=== PATIENT | female | born 1975 | race African-American/Black ===

== ENCOUNTER 2017-10-01 15:09 | Emergency (ER) | payer MEDICAID ==
[~2017-10-01] VITALS: Ht 167.6 cm; Wt 77.3 kg
[~2017-10-01 15:09] MED LIST: ATEN-42 PO; TAP5 PO
[2017-10-01 21:56] LABS: CLARITY URINE CLEAR (CLEAR); COLOR URINE YELLOW (YELLOW); KETONES URINE NEGATIVE (NEGATIVE); LEUKOCYTE ESTERASE URINE NEGATIVE (NEGATIVE); NITRITE URINE NEGATIVE (NEGATIVE); OCCULT BLOOD URINE 2+ (NEGATIVE); PROTEIN URINE NEGATIVE (NEGATIVE); SPECIFIC GRAVITY URINE 1.013 (1.005-1.030); UROBILINOGEN URINE 0.2 E.U./dL (0.2-1.0)
[2017-10-01 22:02] LABS: BASOPHILS % 0.6 % (0.0-2.0); EOSINOPHILS % 2.6 % (0.0-5.0); HEMATOCRIT. 41.4 % (36.0-48.0); HEMOGLOBIN. 14.1 g/dL (12.0-16.0); LYMPHOCYTES % 35.9 % (20.0-50.0); MEAN CORPUSCULAR HEMOGLOBIN 32.3 pg (28.0-32.0); MEAN CORPUSCULAR VOLUME 95.1 fL (81.0-99.0); MEAN PLATELET VOLUME 7.8 fl (7.4-10.4); MONOCYTES % 5.9 % (2.0-8.0); PLATELET 290 x1000/uL (130-400); RED BLOOD CELL COUNT 4.35 mill/uL (4.2-5.4); RED CELL DISTRIBUTION WIDTH 13.4 % (11.6-14.6)
[2017-10-01 22:07] LABS: CHLORIDE 105 mEq/L (98-107)
[2017-10-01 22:15] LABS: CARBON DIOXIDE 25 mEq/L (21-32)
[2017-10-01 23:15] VITALS: BP 128/90
== END 2017-10-01 23:30 | disposition home or self-care (01) ==
LOC: ER 17:50
DX: N92.0 Excessive and frequent menstruation with regular cycle (principal); D64.9 Anemia, unspecified; F14.10 Cocaine abuse, uncomplicated; E05.90 Thyrotoxicosis, unspecified without thyrotoxic crisis or storm; Z88.0 Allergy status to penicillin; Z98.51 Tubal ligation status
CPT/HCPCS: 36415; 80053; 81001; 81025; 85025; 99284

== ENCOUNTER 2020-04-11 22:39 | Inpatient (IN) | payer BC, MEDICAID ==
[~2020-04-11] VITALS: Ht 167.6 cm; Wt 83.0 kg
[2020-04-12] MEDS ORDERED: SODIUM CHLORIDE 0.9% 1,000 ML IV ONE (00:27)
[2020-04-12 00:52] LABS: BASOPHILS % 0.6 % (0.0-2.0); EOSINOPHILS % 2.7 % (0.0-5.0); HEMATOCRIT. 22.1 % (36.0-48.0); LYMPHOCYTES % 29.5 % (20.0-50.0); MEAN CORPUSCULAR HEMOGLOBIN 18.8 pg (28.0-32.0); MEAN CORPUSCULAR VOLUME 62.4 fL (81.0-99.0); MEAN PLATELET VOLUME 7.6 fl (7.4-10.4); MONOCYTES % 5.8 % (2.0-8.0); NEUTROPHILS % 61.4 % (40.0-76.0); PLATELET 451 x1000/uL (130-400); RED BLOOD CELL COUNT 3.55 mill/uL (4.2-5.4); RED CELL DISTRIBUTION WIDTH 20.2 % (11.6-14.6)
[2020-04-12 00:53] LABS: CHLORIDE 107 mEq/L (98-107)
[2020-04-12 00:59] LABS: HEMOGLOBIN. 6.7 g/dL (12.0-16.0)
[2020-04-12 01:00] LABS: PLATELET ESTIMATE NORMAL
[2020-04-12] MEDS ORDERED: ACETAMINOPHEN 325MG TABLET PO PRN (05:30)
[2020-04-12] MEDS ORDERED: ONDANSETRON HCL 4MG/2ML INJ IV PRN (05:30)
[2020-04-12] MEDS ORDERED: DOCUSATE SODIUM 100MG CAPSULE PO PRN (05:30)
[2020-04-12] MEDS ORDERED: CLONIDINE 0.1MG TABLET PO PRN (05:30)
[2020-04-12] MEDS ORDERED: FERROUS SULFATE 325MG TABLET PO SCH (09:00)
[2020-04-12] MEDS: SODIUM CHLORIDE 0.45% 1,000 ML IV SCH ×2 (09:00→17:28)
[2020-04-12 15:30] VITALS: BP 112/58
[2020-04-12 16:11] VITALS: BP 112/58
[2020-04-12 20:40] LABS: HEMATOCRIT. 28.3 % (36.0-48.0); HEMOGLOBIN. 8.9 g/dL (12.0-16.0); MEAN CORPUSCULAR HEMOGLOBIN 21.5 pg (28.0-32.0); MEAN CORPUSCULAR VOLUME 68.1 fL (81.0-99.0); MEAN PLATELET VOLUME 7.6 fl (7.4-10.4); PLATELET 406 x1000/uL (130-400); RED BLOOD CELL COUNT 4.16 mill/uL (4.2-5.4); RED CELL DISTRIBUTION WIDTH 27.1 % (11.6-14.6)
[2020-04-12 20:49] VITALS: BP 94/58
[2020-04-12 21:46] VITALS: BP 94/58
[2020-04-12 21:53] LABS: PLATELET ESTIMATE INCREASED
== END 2020-04-12 21:45 | disposition home or self-care (01) | DRG 760 ==
LOC: ER 22:39 → 6WST 04-12 01:06 → ENRESERV 04-12 14:06
PROVIDERS: ADMIT Hospitalist; ATTEND Hospitalist
PROC: 30233N1 Transfusion of Nonautologous Red Blood Cells into Peripheral Vein, Percutaneous Approach (ICD-10-PCS; principal; 2020-04-12)
DX: N92.0 Excessive and frequent menstruation with regular cycle (principal); D62 Acute posthemorrhagic anemia; E05.90 Thyrotoxicosis, unspecified without thyrotoxic crisis or storm; I10 Essential (primary) hypertension; D50.9 Iron deficiency anemia, unspecified; Z88.0 Allergy status to penicillin; Z79.899 Other long term (current) drug therapy; Z98.51 Tubal ligation status
CPT/HCPCS: 36415; 76830; 76856; 80053; 85025; 86850; 86900; 86920; 93970; 99285; J2405; P9016

== ENCOUNTER 2023-03-24 09:45 | Emergency (ER) | payer BC ==
[~2023-03-24] VITALS: Ht 167.6 cm; Wt 82.0 kg
[~2023-03-24 09:45] MED LIST changes: +METH-371 PO; -TAP5 PO
[2023-03-24 09:56] VITALS: O2SAT 96
[2023-03-24 10:42] LABS: BASOPHILS % 0.5 % (0.0-2.0); EOSINOPHILS % 3.3 % (0.0-5.0); HEMATOCRIT. 28.9 % (36.0-48.0); HEMOGLOBIN. 9.3 g/dL (12.0-16.0); LYMPHOCYTES % 34.3 % (20.0-50.0); MEAN CORPUSCULAR HEMOGLOBIN 26.8 pg (28.0-32.0); MEAN CORPUSCULAR VOLUME 83.1 fL (81.0-99.0); MEAN PLATELET VOLUME 7.5 fl (7.4-10.4); NEUTROPHILS % 54.9 % (40.0-76.0); PLATELET 355 x1000/uL (130-400); RED BLOOD CELL COUNT 3.48 mill/uL (4.2-5.4); RED CELL DISTRIBUTION WIDTH 20.9 % (11.6-14.6)
[2023-03-24 10:44] LABS: CHLORIDE 111 mEq/L (98-107)
[2023-03-24 15:09] LABS: CLARITY URINE CLEAR (CLEAR); COLOR URINE YELLOW (YELLOW); KETONES URINE NEGATIVE (NEGATIVE); LEUKOCYTE ESTERASE URINE NEGATIVE (NEGATIVE); NITRITE URINE NEGATIVE (NEGATIVE); OCCULT BLOOD URINE 1+ (NEGATIVE); PH URINE 5.5 (4.5-8.0); PROTEIN URINE NEGATIVE (NEGATIVE); SPECIFIC GRAVITY URINE 1.017 (1.005-1.030); UROBILINOGEN URINE 0.2 E.U./dL (0.2-1.0)
[2023-03-24 15:27] VITALS: BP 133/79; PULSE 78; RESP 18; TEMP 98.7
== END 2023-03-24 15:29 | disposition home or self-care (01) ==
LOC: ER 10:16
DX: G44.209 Tension-type headache, unspecified, not intractable (principal); Z88.0 Allergy status to penicillin; Z98.890 Other specified postprocedural states; Z86.39 Personal history of other endocrine, nutritional and metabolic disease
CPT/HCPCS: 36415; 80053; 81003; 81025; 85025; 99283

== ENCOUNTER 2024-04-21 11:51 | Emergency (ER) | payer BC ==
[~2024-04-21] VITALS: Ht 167.6 cm; Wt 70.0 kg
[2024-04-21 12:24] VITALS: O2SAT 98
[2024-04-21 13:07] LABS: ADD RBC MORPHOLOGY YES; BASOPHILS % 0.6 % (0.0-2.0); DIFFERENTIAL COMMENT 1; HEMATOCRIT. 29.9 % (36.0-48.0); HEMOGLOBIN. 9.4 g/dL (12.0-16.0); LYMPHOCYTES % 30.9 % (20.0-50.0); MEAN CORPUSCULAR HEMOGLOBIN 26.3 pg (28.0-32.0); MEAN CORPUSCULAR HGB CONC 31.6 g/dL (31.0-37.0); MEAN CORPUSCULAR VOLUME 83.2 fL (81.0-99.0); MEAN PLATELET VOLUME 7.2 fl (7.4-10.4); MONOCYTES % 5.8 % (2.0-8.0); NEUTROPHILS % 60.7 % (40.0-76.0); PLATELET 408 x1000/uL (130-400); RED BLOOD CELL COUNT 3.59 mill/uL (4.2-5.4); RED CELL DISTRIBUTION WIDTH 24.2 % (11.6-14.6); WHITE BLOOD COUNT 4.6 x1000/uL (4.5-11.0)
[2024-04-21 13:15] LABS: CHLORIDE 104 mEq/L (98-107); POTASSIUM 4.1 mEq/L (3.5-5.1); SODIUM 137 mEq/L (136-145)
[2024-04-21 13:16] LABS: CALCIUM 9.7 mg/dL (8.7-10.4); CARBON DIOXIDE 29 mEq/L (21-32)
[2024-04-21 13:21] LABS: CREATININE 0.7 mg/dL (0.6-1.0); GLUCOSE 90 mg/dL (70-105); UREA NITROGEN BLOOD 8 mg/dL (9-23)
[2024-04-21 13:40] LABS: HCG SCREEN NEGATIVE
[2024-04-21 14:51] LABS: ANISOCYTOSIS 4+; PLATELET ESTIMATE SLIGHTLY INCREASED
[2024-04-21 15:16] VITALS: BP 120/74; PULSE 84; RESP 18; TEMP 98.2
== END 2024-04-21 15:20 | disposition home or self-care (01) ==
LOC: ER 11:51
DX: N80.8 Other endometriosis (principal); D64.9 Anemia, unspecified; E03.9 Hypothyroidism, unspecified; Z98.51 Tubal ligation status; Z88.0 Allergy status to penicillin
CPT/HCPCS: 36415; 80048; 84703; 85025; 86850; 86900; 99283